=== PATIENT | male | born 2000 | race Caucasian/White ===

== ENCOUNTER 2021-06-02 22:58 | Emergency (ER) | payer BC, SELFPAY ==
[2021-06-02 23:06] VITALS: BP 132/63; PULSE 69; RESP 16; TEMP 36.5; O2SAT 100
--- NOTE | 2021-06-02 23:13 | ED.URI ---
HPI - URI/Sore Throat General Chief Complaint: Upper Respiratory Infection Stated Complaint: sore throat Time Seen by Provider: 06/02/21 23:07 Source: patient Mode of arrival: ambulatory Limitations: no limitations History of Present Illness HPI Narrative: Patient is a 20-year-old previously healthy male presenting for evaluation of sore throat. Patient states he began to feel unwell 3 days ago, states that he has had sore throat. Reports mild rhinorrhea. Denies cough or shortness of breath. Denies fever or chills. No recent sick contacts no neck swelling or neck pain. He has been able to tolerate oral intake without nausea or vomiting. No rash. Patient states there is small patches in the back of his throat. States he does have history of strep throat many years ago. No history of recurrent strep pharyngitis. He denies ear pain. No abdominal pain. Patient has no known history of Covid. He is not vaccinated for Covid. Related Data Allergies Allergy/AdvReac Type Severity Reaction Status Date / Time No Known Allergies Allergy Mild Verified 06/02/21 23:08 Review of Systems Review of Systems: CONSTITUTIONAL: Denies fever HEENT: Reports sore throat, denies ear pain CARDIOVASCULAR: Denies chest pain RESPIRATORY: Denies cough or dyspnea. GASTROINTESTINAL: Denies abdominal pain SKIN: Denies rash MUSCULOSKELETAL: Denies back pain NEUROLOGIC: Denies headache [facility] Social History Social History (Updated 06/02/21 @ 23:14 by Larisa Arreola MD) Smoking status: Current every day smoker Tobacco type: e-cigarettes/vaping Alcohol intake: current Substance use: never Gender identity (if verbalized by the patient): Male Exam Narrative: GENERAL: Awake, alert, conversant HEAD: Normocephalic, atraumatic. EYES: PERRLA and EOMI. ENT: Nares clear, no rhinorrhea or epistaxis. Mucous membranes moist. Mild tonsillar edema bilaterally of the palatine tonsils. There is no exudate. Patient does have ulcerations in the posterior oropharynx. Uvula is midline. Mildly erythematous. No uvular edema. No trismus. No tongue lesions. NECK: Supple. CHEST: No respiratory distress, breathing even and non labored HEART: Regular rate, sinus rhythm ABDOMEN:Non distended, non tender EXTREMITIES: Normal range of motion. No edema. SKIN: Warm, dry, no rash. NEURO:No focal deficits. Alert and oriented x3 Course Vital Signs Vital signs: Vital Signs Temperature 36.5 C 06/02/21 23:06 Pulse Rate 69 06/02/21 23:06 Respiratory Rate 16 06/02/21 23:06 Blood Pressure 132/63 06/02/21 23:06 Pulse Oximetry 100 06/02/21 23:06 Temperature 36.5 C 06/02/21 23:06 Pulse Rate 69 06/02/21 23:06 Respiratory Rate 16 06/02/21 23:06 Blood Pressure 132/63 06/02/21 23:06 Pulse Oximetry 100 06/02/21 23:06 MDM - URI/Sore Throat MDM Narrative Medical decision making narrative: Patient presenting for evaluation of sore throat, hemodynamically stable on exam. No trismus. No evidence to be concerning for deep space infection. Vital signs are stable. Physical exam is consistent with coxsackie, herpangina with ulcerations in the posterior oropharynx. We will swab for strep throat. Less likely to be Covid given symptoms that we will still swab the patient. Patient advised to continue anti-inflammatories. Step negative. Patient will receive Magic mouthwash. Discharged home in stable condition. Lab Data Labs: Strep Screen Presumptive Negative *(Reference Range: Negative)* Discharge Plan Discharge Clinical Impression: Acute herpangina Patient Disposition: Home, Self-Care Condition: Stable Instructions: Hand, Foot, and Mouth Disease (ED) Additional Instructions: You have a viral infection. It is important that you use Magic mouthwash, take anti-inflammatories such as Tylenol and ibuprofen to help with pain. Please contact your primary care phy
[2021-06-03 20:10] LABS: SARS-CoV-2 RNA PCR Negative
== END 2021-06-02 23:40 | disposition home or self-care (01) ==
PROVIDERS: Emergency Provider Emergency Medicine
DX: B08.5 Enteroviral vesicular pharyngitis (principal); Z20.822 Contact with and (suspected) exposure to COVID-19; F17.210 Nicotine dependence, cigarettes, uncomplicated
CPT/HCPCS: 87081; 87804; 87880; 99283; C9803; U0003; U0005